=== PATIENT | female | born 1970 | race Caucasian/White ===

== ENCOUNTER → 2016-12-12 | Outpatient (CLI) | payer BC ==
[~2016-12-12] MED LIST: CHOL100010 PO; CHOL1TAB42 PO; TAMO20TA47 PO; VENL37.593 PO
== END | disposition home or self-care (01) ==
LOC: C.MAMM 12:43
PROVIDERS: ATTEND Nurse Practitioner
DX: C50.912 Malignant neoplasm of unspecified site of left female breast (principal); M85.80 Other specified disorders of bone density and structure, unspecified site; Z78.0 Asymptomatic menopausal state; Z82.62 Family history of osteoporosis

== ENCOUNTER → 2017-03-13 | Outpatient (CLI) | payer BC ==
[~2017-03-13] MED LIST changes: -TAMO20TA47 PO; +TAMO20TA9 PO
== END | disposition home or self-care (01) ==
LOC: C.PAPS 18:14
PROVIDERS: ATTEND Obstetrics & Gynecology
DX: Z01.419 Encounter for gynecological examination (general) (routine) without abnormal findings (principal)

== ENCOUNTER → 2017-05-09 | Day surgery (SDC) | payer BC ==
[2017-04-26 14:49] VITALS: BMI 31.0
[~2017-05-09] VITALS: Ht 175.3 cm; Wt 95.5 kg
[~2017-05-09] MED LIST changes: -CHOL100010 PO; +LIDOCAINE HCL 2% 2 ML VIAL (20MG/ML) ONE; +PROPOFOL IV EMULSION 10 MG/ML 20 ML VIAL IV ONE; +SODIUM CHLORIDE 0.9% 500ML 500 ML IV ONE
[2017-05-09 10:56] VITALS: Ht 175.3 cm; Wt 95.5 kg
--- NOTE | 2017-05-09 11:13 | Endo History and Physical ---
History & Physical Date of Service: May 09, 2017. Chief Complaint: constipation, blood in stool Referring Physician: Dr. Morocho History of Present Illness 46 yo CF who presents for colonoscopy secondary to rectal bleeding. Past Surgical History Hx Cardiac Surgery: No Hx Internal Defibrillator: No Hx Pacemaker: No Hx Abdominal Surgery: Yes (MARQUES, EXPLORATORY LAP) Hx of Implantable Prosthesis: No Hx Post-Op Nausea and Vomiting: No Hx Cancer Surgery: Yes (LT BREAST LUMPECTOMY) Hx Thoracic Surgery: No Hx Orthopedic: Yes (LT BUNIONECTOMY, RT ULNAR NERVE REPOSITION, LT HAND MIDDLE FINGER SURGERY) Hx Urinary Tract Surgery: No Family History None Social History Smoking Status: Never Smoker Hx Substance Use: No Hx Alcohol Use: Yes (1 GLASS WINE 1-2X/WEEK) Allergies Coded Allergies: Glucosamine (Verified Allergy, Mild, HIVES, 04/26/17) Current Medications Reported Home Medications Medications Dose Route/Sig Max Daily Dose Days Date Category Vitamin D (Cholecalciferol) 5,000 Unit Tab 1 Tab PO QAM 04/26/17 Reported Nolvadex (Tamoxifen Citrate) 20 Mg Tab 20 Mg PO QAM 04/26/17 Reported Venlafaxine Extended Rel (Venlafaxine Hcl) 37.5 Mg Cap 0.5 Tab PO QAM 07/24/16 Reported Vital Signs Weight (Kilograms): 95.45 Height (Feet): 5 Height (Inches): 9 Date Time Temp Pulse Resp B/P (MAP) Pulse Ox O2 Delivery O2 Flow Rate FiO2 05/09/17 11:06 37.1 81 20 125/74 (91) 94 Room Air Physical Exam General Appearance: WD/WN, no apparent distress Respiratory/Chest: Auscultation: breath sounds normal Cardiovascular: Heart Auscultation: RRR Abdomen: Bowel Sounds: normal Inspection & Palpation: soft, non-distended, no tenderness, guarding & rebound Assessment and Plan Assessment: 46 yo CF who presents for colonoscopy secondary to rectal bleeding. Plan: Proceed with colonoscopy.
--- NOTE | 2017-05-09 11:42 | Discharge Instructions ---
Endoscopy Patient Instructions Date / Procedure(s) Performed May 09, 2017. Colonoscopy Allergy Information Coded Allergies: Glucosamine (Verified Allergy, Mild, HIVES, 04/26/17) Discharge Date / Findings May 09, 2017. Internal hemorrhoids Medication Instructions OK to resume all medications today as prescribed. Medications Dose Route/Sig Max Daily Dose Days Date Category Vitamin D (Cholecalciferol) 5,000 Unit Tab 1 Tab PO QAM 04/26/17 Reported Nolvadex (Tamoxifen Citrate) 20 Mg Tab 20 Mg PO QAM 04/26/17 Reported Venlafaxine Extended Rel (Venlafaxine Hcl) 37.5 Mg Cap 0.5 Tab PO QAM 07/24/16 Reported Provider Instructions Activity Restrictions - No exercising or heavy lifting for 24 hours. - Do not drink alcohol the day of the procedure. - Do not drive a car or operate machinery until the day after the procedure. - Do not make any important decisions or sign important papers in 24 hours after the procedure. Following Day: - Return to full activity which may include returning to work/school. Diet Start your diet with liquids and light foods (jello, soup, juice, toast). Then eat your usual diet if not nauseated. Treatment For Common After Affects For mild abdominal pain, bloating, or excessive gas: - Rest - Eat lightly - Lie on right side Follow-Up Information Follow-up with Dr. Morocho as scheduled Anesthesia Information What You Should Know You have had a procedure that required some medicine to reduce anxiety and discomfort. This treatment is called moderate sedation. After receiving the treatment, you may be sleepy, but you will be able to breathe on your own. The effects of the treatment may last for several hours. Follow these instructions along with Activity/Diet recommendations noted above: * Do NOT do anything where dizziness or clumsiness would be dangerous. * Rest quietly at home today, then you can be up and about tomorrow. * Have a responsible person stay with you the rest of today. * You may have had an I.V. today. If so, you may take the dressing off later today. Recommendations Call your doctor if: * Trouble breathing * Continuous vomiting for more than 24 hours * Temperature above 101 degrees * Severe abdominal pain or bloating * Pain not relieved by pain medicine ordered * There is increased drainage or redness from any incision * A large amount of rectal bleeding greater than 2-3 tablespoons. (If you had a polyp/s removed or have hemorrhoids, a small amount of blood - from the rectum is to be expected.) * You have any unanswered questions or concerns. IN THE EVENT OF A SERIOUS EMERGENCY, GO TO THE NEAREST EMERGENCY ROOM Your discharge instructions were prepared by provider Ramy Rubin. Patient Instructions Signature Page H Carter Patient (or Guardian) Signature/Date: I have read and understand the instructions given to me by my caregivers. Caregiver/RN/Doctor Signature/Date: The above-named patient and/or guardian has received patient instructions on this date. + Original Patient Signature Page (only) stays with chart. Please make copy for patient.
--- NOTE | 2017-05-09 11:46 | GI REPORT ---
Procedure Date: 05/09/2017 11:23 AM Procedure: Colonoscopy Indications: Rectal bleeding Medicines: Monitored Anesthesia Care Complications: No immediate complications. Estimated Blood Loss: Estimated blood loss: none. Procedure: Pre-Anesthesia Assessment: - Prior to the procedure, a History and Physical was performed, and patient medications and allergies were reviewed. The patient's tolerance of previous anesthesia was also reviewed. The risks and benefits of the procedure and the sedation options and risks were discussed with the patient. All questions were answered, and informed consent was obtained. Prior Anticoagulants: The patient has taken no previous anticoagulant or antiplatelet agents. ASA Grade Assessment: II - A patient with mild systemic disease. After reviewing the risks and benefits, the patient was deemed in satisfactory condition to undergo the procedure. After I obtained informed consent, the scope was passed under direct vision. Throughout the procedure, the patient's blood pressure, pulse, and oxygen saturations were monitored continuously. The scope was introduced through the anus and advanced to the terminal ileum. The colonoscopy was performed without difficulty. The patient tolerated the procedure well. The quality of the bowel preparation was good. The terminal ileum, ileocecal valve, appendiceal orifice, and rectum were photographed. Findings: Non-bleeding internal hemorrhoids were found during retroflexion. The hemorrhoids were small. Impression: - Non-bleeding internal hemorrhoids. - No specimens collected. Recommendation: - Resume previous diet. - Continue present medications. - Repeat colonoscopy in 10 years for surveillance. - Return to primary care physician as previously scheduled. Ramy Rubin DO 05/09/2017 11:45:11 AM This report has been signed electronically. Note Initiated On: 05/09/2017 11:23 AM I attest to the content of the Intraoperative Record and orders documented therein, exceptions below
--- NOTE | 2017-05-09 11:51 | Anesthesiology Progress Note ---
Anesthesia Post Op Note Date & Time May 09, 2017 at 11:51 Vital Signs Pain Intensity: 0 Vital Signs Past 12 Hours Date Time Temp Pulse Resp B/P (MAP) Pulse Ox O2 Delivery O2 Flow Rate FiO2 05/09/17 11:06 37.1 81 20 125/74 (91) 94 Room Air Notes Mental Status: alert / awake / arousable, participated in evaluation Pt Amnestic to Procedure: Yes Nausea / Vomiting: adequately controlled Pain: adequately controlled Airway Patency, RR, SpO2: stable & adequate BP & HR: stable & adequate Hydration State: stable & adequate Anesthetic Complications: no major complications apparent
[2017-05-09 12:05] VITALS: BP 120/90; PULSE 72; O2SAT 98
== END | disposition home or self-care (01) ==
LOC: C.GI 10:47
PROVIDERS: ATTEND Internal Medicine
DX: K62.5 Hemorrhage of anus and rectum (principal); K59.00 Constipation, unspecified; K64.8 Other hemorrhoids